=== PATIENT | female | born 1940 | race Caucasian/White ===

== ENCOUNTER 2024-05-09 17:28 | Inpatient (IN) | payer BC, MEDICARE ==
[~2024-05-09] VITALS: Ht 160 cm; Wt 56.4 kg
[~2024-05-09 17:28] MED LIST: VALS1TAB2 PO
[2024-05-09] MEDS: VANCOMYCIN 1 GM in IV D5W 250 ML IV ONE (18:00)
[2024-05-09 18:18] LABS: BASOPHILS # (AUTO) 0.2 K/uL (0.0-0.2); BASOPHILS % (AUTO) 0.8 % (0.0-2.0); EOSINOPHILS % (AUTO) 0.1 % (0.0-6.0); HEMATOCRIT 32 % (33-45); HEMOGLOBIN 10.4 g/dL (11.5-14.8); LYMPHOCYTES # (AUTO) 0.4 K/uL (0.8-4.8); LYMPHOCYTES % (AUTO) 1.2 % (20.0-44.0); MEAN CORPUSCULAR HEMOGLOBIN 31 PG (26.0-33.0); MEAN CORPUSCULAR HGB CONC 33 g/dl (31.0-36.0); MEAN CORPUSCULAR VOLUME 93 fL (82-100); MONOCYTES # (AUTO) 0.4 K/uL (0.1-1.30); MONOCYTES % (AUTO) 1.4 % (2.0-12.0); NEUTROPHILS # (AUTO) 27.7 K/uL (1.8-8.9); NEUTROPHILS % (AUTO) 96.5 % (43.0-81.0); PLATELET COUNT (AUTO) 304 K/uL (150-450); RED BLOOD CELL COUNT(AUTO) 3.41 MIL/uL (4.0-5.2); RED CELL DISTRIBUTION WIDTH 13.5 % (11.5-15.0); WHITE BLOOD COUNT (AUTO) 28.7 K/uL (4.3-11.0)
[2024-05-09] MEDS ORDERED: LORA-258 PO (18:18)
[2024-05-09] MEDS ORDERED: CYAN-51 PO (18:18)
[2024-05-09] MEDS ORDERED: GUAI100S34 PO (18:18)
[2024-05-09] MEDS ORDERED: ACET-907 PO (18:18)
[2024-05-09] MEDS ORDERED: THIA100T88 PO (18:18)
[2024-05-09] MEDS ORDERED: [UNRECOGNIZED DRUG - CODE] PO (18:18)
[2024-05-09] MEDS ORDERED: AZEL137S7 BNOSTRILS (18:18)
[2024-05-09] MEDS ORDERED: ACETAMINOPHEN ES 500 MG TABLET ONE (18:23)
[2024-05-09 18:28] LABS: LACTIC ACID 1.1 mmol/L (0.4-2.0)
[2024-05-09 18:33] LABS: CALCIUM, SERUM 9.2 mg/dL (8.5-10.1); CARBON DIOXIDE 23 mmol/L (21-32); CHLORIDE 94 mmol/L (98-107); CREATININE 1.8 mg/dL (0.6-1.3); GLUCOSE 113 mg/dL (74-106); POTASSIUM 3.7 mmol/L (3.5-5.1); SODIUM SERUM 129 mmol/L (136-145); UREA NITROGEN, BLOOD 50 mg/dL (7-18)
[2024-05-09] MEDS: CEFEPIME 1 GM in IV D5W 50 ML IV ONE (18:35)
[2024-05-09] MEDS: IV NS 0.9% 1,000 ML BAG IV ONE ×2 (18:35)
[2024-05-09] MEDS: ACETAMINOPHEN ES 500 MG TABLET PO ONE (18:36)
[2024-05-09 18:41] LABS: APPEARANCE,URINE Slightly Cloudy (CLEAR); BILIRUBIN,URINE SMALL (NEGATIVE); BLOOD, URINE Moderate Ery/uL (NEGATIVE); COLOR,URINE YELLOW (YELLOW); KETONES,URINE Trace mg/dL (NEGATIVE); LEUKOCYTE ESTERASE ,URINE Negative (NEGATIVE); NITRITE, URINE Negative (NEGATIVE); PH,URINE 5.5 (5.0-8.0); PROTEIN,URINE >=300 mg/dl (NEGATIVE); UGLUCOSE Negative (NEGATIVE)
[2024-05-09 19:19] LABS: ADD URINE CULTURE NO; BACTERIA,URINE Few /HPF (None Seen); SQUAMOUS EPITHELIAL CELL,UR Few /HPF (None Seen); URINE AMORPHOUS URATE Many /HPF (None Seen)
[2024-05-09] MEDS ORDERED: ONDANSETRON HCL/PF 4 MG/2 ML VIAL IVP PRN (20:00)
[2024-05-09] MEDS ORDERED: ALBUTEROL FS 2.5 MG/3 ML VIAL.NEB NEB PRN (20:00)
[2024-05-09] MEDS ORDERED: Z GUARD REMEDY 4 OZ OINT TP PRN (20:00)
[2024-05-09] MEDS: ZOLPIDEM TARTRATE 5 MG TABLET PO PRN (22:29)
[2024-05-09] MEDS: IV NS 0.9% 1,000 ML IV PRN (22:45)
[2024-05-10] VITALS: BP 113/79; TEMP 97.5; O2SAT 98
[2024-05-10 04:00] VITALS: BP 126/51; TEMP 97.6; O2SAT 99
[2024-05-10] MEDS: ACETAMINOPHEN 325 MG TABLET PO PRN (05:01)
[2024-05-10 07:22] LABS: BASOPHILS % (AUTO) 0.2 % (0.0-2.0); EOSINOPHILS # (AUTO) 0.2 K/uL (0.0-0.7); EOSINOPHILS % (AUTO) 0.6 % (0.0-6.0); HEMATOCRIT 28 % (33-45); HEMOGLOBIN 9.4 g/dL (11.5-14.8); LYMPHOCYTES # (AUTO) 0.5 K/uL (0.8-4.8); LYMPHOCYTES % (AUTO) 1.9 % (20.0-44.0); MEAN CORPUSCULAR HEMOGLOBIN 31 PG (26.0-33.0); MEAN CORPUSCULAR HGB CONC 34 g/dl (31.0-36.0); MEAN CORPUSCULAR VOLUME 91 fL (82-100); MONOCYTES # (AUTO) 0.5 K/uL (0.1-1.30); MONOCYTES % (AUTO) 1.8 % (2.0-12.0); NEUTROPHILS # (AUTO) 23.8 K/uL (1.8-8.9); NEUTROPHILS % (AUTO) 95.5 % (43.0-81.0); PLATELET COUNT (AUTO) 251 K/uL (150-450); RED BLOOD CELL COUNT(AUTO) 3.02 MIL/uL (4.0-5.2); RED CELL DISTRIBUTION WIDTH 13.9 % (11.5-15.0)
[2024-05-10] MEDS: PANTOPRAZOLE 40 MG TABLET.DR PO SCH (07:30)
[2024-05-10 08:00] VITALS: BP_SYST 139; BP_SYST 143; BP_DIAS 53; BP_DIAS 76; TEMP 97.5; TEMP 98.1; O2SAT 95; O2SAT 97
[2024-05-10 08:19] LABS: CALCIUM, SERUM 8.6 mg/dL (8.5-10.1); CARBON DIOXIDE 22 mmol/L (21-32); CHLORIDE 102 mmol/L (98-107); CREATININE 1.3 mg/dL (0.6-1.3); GLUCOSE 102 mg/dL (74-106); MAGNESIUM 2.1 mg/dL (1.8-2.4); PHOSPHORUS 3.8 mg/dL (2.5-4.9); POTASSIUM 3.3 mmol/L (3.5-5.1); SODIUM SERUM 135 mmol/L (136-145); UREA NITROGEN, BLOOD 44 mg/dL (7-18)
[2024-05-10] MEDS: CEFEPIME 1 GM in IV D5W 50 ML IV SCH (09:18)
[2024-05-10] MEDS: POTASSIUM CHLORIDE 20 MEQ TAB.PRT.SR PO ONE (11:48)
[2024-05-10 12:00] VITALS: BP 126/56; TEMP 97.5; O2SAT 100
[2024-05-10] MEDS ORDERED: ACETAMINOPHEN W/ CODEINE#3 1 EA TABLET PO PRN (12:00)
[2024-05-10] MEDS: LORAZEPAM 0.5 MG TABLET PO SCH (12:16)
[2024-05-10] MEDS: ENOXAPARIN SODIUM 30 MG/0.3 ML DISP.SYRIN SQ SCH (12:35)
[2024-05-10 15:45] LABS: ALBUMIN 1.7 g/dL (3.4-5.0); BILIRUBIN,DIRECT 0.3 mg/dL (0.0-0.2); BILIRUBIN,TOTAL 0.5 mg/dL (0.2-1.0)
[2024-05-10 16:00] VITALS: BP 131/63; TEMP 98.6; O2SAT 99
[2024-05-10] MEDS: VANCOMYCIN 750 MG in IV D5W 250 ML IV SCH (17:06)
[2024-05-10] MEDS ORDERED: VANCOMYCIN 500 MG in IV D5W 100ml IV SCH (18:00)
[2024-05-10 20:00] VITALS: BP 149/56; TEMP 98.8; O2SAT 99
[2024-05-10] MEDS: ZOLPIDEM TARTRATE 5 MG TABLET PO PRN (20:24)
[2024-05-11] VITALS: BP 144/72; TEMP 99.1; O2SAT 98
[2024-05-11 04:00] VITALS: BP 147/70; TEMP 99; O2SAT 97
[2024-05-11 07:08] LABS: BASOPHILS # (AUTO) 0.1 K/uL (0.0-0.2); BASOPHILS % (AUTO) 0.3 % (0.0-2.0); EOSINOPHILS # (AUTO) 0.5 K/uL (0.0-0.7); EOSINOPHILS % (AUTO) 2.7 % (0.0-6.0); HEMATOCRIT 27 % (33-45); HEMOGLOBIN 9.2 g/dL (11.5-14.8); LYMPHOCYTES # (AUTO) 0.8 K/uL (0.8-4.8); MEAN CORPUSCULAR HEMOGLOBIN 31 PG (26.0-33.0); MEAN CORPUSCULAR HGB CONC 34 g/dl (31.0-36.0); MEAN CORPUSCULAR VOLUME 92 fL (82-100); MONOCYTES # (AUTO) 0.7 K/uL (0.1-1.30); MONOCYTES % (AUTO) 3.4 % (2.0-12.0); NEUTROPHILS % (AUTO) 89.6 % (43.0-81.0); PLATELET COUNT (AUTO) 244 K/uL (150-450); RED BLOOD CELL COUNT(AUTO) 2.94 MIL/uL (4.0-5.2); RED CELL DISTRIBUTION WIDTH 13.6 % (11.5-15.0)
[2024-05-11 07:51] LABS: CALCIUM, SERUM 8.5 mg/dL (8.5-10.1); CARBON DIOXIDE 21 mmol/L (21-32); CHLORIDE 103 mmol/L (98-107); GLUCOSE 94 mg/dL (74-106); POTASSIUM 3.4 mmol/L (3.5-5.1); SODIUM SERUM 134 mmol/L (136-145); UREA NITROGEN, BLOOD 25 mg/dL (7-18)
[2024-05-11 08:00] VITALS: BP 186/84; TEMP 97.6; O2SAT 100
[2024-05-11] MEDS: LOSARTAN POTASSIUM 50 MG TABLET PO SCH (08:18)
[2024-05-11] MEDS: AMLODIPINE BESYLATE 5 MG TABLET PO SCH (08:20)
[2024-05-11] MEDS: THIAMINE HCL 100 MG TABLET PO SCH (08:21)
[2024-05-11] MEDS: POTASSIUM CHLORIDE 20 MEQ TAB.PRT.SR PO ONE (10:01)
[2024-05-11 12:00] VITALS: BP 171/73; TEMP 97.5; O2SAT 99
[2024-05-11 14:52] LABS: HIV-1 p24 ANTIGEN NON REACTIVE (NONREACTIVE); HIV-1/2 ANTIBODY NON REACTIVE (NONREACTIVE)
[2024-05-11 16:00] VITALS: BP 149/67; TEMP 97.8; O2SAT 99
[2024-05-11] MEDS: VANCOMYCIN 1 GM in IV D5W 250ml IV SCH (17:02)
[2024-05-11 20:00] VITALS: BP 141/82; TEMP 97.6; O2SAT 96
[2024-05-12] VITALS: BP 149/56; TEMP 97.6; O2SAT 96
[2024-05-12 06:00] VITALS: BP 150/71; TEMP 98.3; O2SAT 96
[2024-05-12 08:27] VITALS: BP 179/84; TEMP 97.5; O2SAT 96
[2024-05-12] MEDS: AMLODIPINE BESYLATE 5 MG TABLET PO SCH (08:30)
[2024-05-12 12:00] VITALS: BP 139/63; TEMP 98.4; O2SAT 99
[2024-05-12] MEDS ORDERED: LORAZEPAM 0.5 MG TABLET PO PRN (12:00)
[2024-05-12] MEDS: busPIRone 5 MG TABLET PO SCH (13:47)
[2024-05-12] MEDS: CEFTRIAXONE 2 G in IV D5W 100 ML IV SCH (13:47)
[2024-05-12 16:00] VITALS: BP 127/54; TEMP 98.4; O2SAT 100
[2024-05-12 20:30] VITALS: BP 159/71; TEMP 98.4; O2SAT 99
[2024-05-13 00:44] VITALS: BP 151/65; TEMP 98.4; O2SAT 96
[2024-05-13 04:44] VITALS: BP 133/60; TEMP 97.5; O2SAT 98
[2024-05-13 08:00] VITALS: BP 139/54; TEMP 97.7; O2SAT 98
[2024-05-13 10:02] LABS: BASOPHILS # (AUTO) 0.1 K/uL (0.0-0.2); BASOPHILS % (AUTO) 0.5 % (0.0-2.0); EOSINOPHILS # (AUTO) 0.3 K/uL (0.0-0.7); EOSINOPHILS % (AUTO) 1.9 % (0.0-6.0); HEMATOCRIT 29 % (33-45); HEMOGLOBIN 9.7 g/dL (11.5-14.8); LYMPHOCYTES # (AUTO) 0.8 K/uL (0.8-4.8); LYMPHOCYTES % (AUTO) 5.5 % (20.0-44.0); MEAN CORPUSCULAR HEMOGLOBIN 31 PG (26.0-33.0); MEAN CORPUSCULAR HGB CONC 33 g/dl (31.0-36.0); MEAN CORPUSCULAR VOLUME 92 fL (82-100); MONOCYTES # (AUTO) 0.7 K/uL (0.1-1.30); MONOCYTES % (AUTO) 4.5 % (2.0-12.0); NEUTROPHILS # (AUTO) 13.5 K/uL (1.8-8.9); NEUTROPHILS % (AUTO) 87.6 % (43.0-81.0); PLATELET COUNT (AUTO) 302 K/uL (150-450); RED BLOOD CELL COUNT(AUTO) 3.18 MIL/uL (4.0-5.2); RED CELL DISTRIBUTION WIDTH 13.6 % (11.5-15.0); WHITE BLOOD COUNT (AUTO) 15.4 K/uL (4.3-11.0)
[2024-05-13 10:18] LABS: CALCIUM, SERUM 9.3 mg/dL (8.5-10.1); CARBON DIOXIDE 29 mmol/L (21-32); CHLORIDE 103 mmol/L (98-107); CREATININE 0.9 mg/dL (0.6-1.3); GLUCOSE 125 mg/dL (74-106); POTASSIUM 2.9 mmol/L (3.5-5.1); SODIUM SERUM 140 mmol/L (136-145); UREA NITROGEN, BLOOD 17 mg/dL (7-18)
[2024-05-13] MEDS: POTASSIUM CHLORIDE 20 MEQ TAB.PRT.SR PO ONE (10:41)
[2024-05-13] MEDS: LORAZEPAM INJ 2 MG/ML VIAL IM ONE (15:46)
[2024-05-13 16:00] VITALS: BP 122/64; TEMP 99.1; O2SAT 96
[2024-05-14] VITALS: BP 122/64; TEMP 99.1; O2SAT 96
[2024-05-14 04:00] VITALS: BP 156/80; TEMP 98.8; O2SAT 94
[2024-05-14 07:07] LABS: BASOPHILS # (AUTO) 0.1 K/uL (0.0-0.2); EOSINOPHILS # (AUTO) 0.3 K/uL (0.0-0.7); EOSINOPHILS % (AUTO) 2.8 % (0.0-6.0); HEMATOCRIT 30 % (33-45); HEMOGLOBIN 10.3 g/dL (11.5-14.8); LYMPHOCYTES # (AUTO) 1.1 K/uL (0.8-4.8); LYMPHOCYTES % (AUTO) 9.4 % (20.0-44.0); MEAN CORPUSCULAR HEMOGLOBIN 31 PG (26.0-33.0); MEAN CORPUSCULAR HGB CONC 34 g/dl (31.0-36.0); MEAN CORPUSCULAR VOLUME 90 fL (82-100); MONOCYTES # (AUTO) 0.7 K/uL (0.1-1.30); MONOCYTES % (AUTO) 6.1 % (2.0-12.0); NEUTROPHILS # (AUTO) 9.7 K/uL (1.8-8.9); NEUTROPHILS % (AUTO) 80.7 % (43.0-81.0); PLATELET COUNT (AUTO) 332 K/uL (150-450); RED BLOOD CELL COUNT(AUTO) 3.37 MIL/uL (4.0-5.2); RED CELL DISTRIBUTION WIDTH 13.4 % (11.5-15.0); WHITE BLOOD COUNT (AUTO) 12.1 K/uL (4.3-11.0)
[2024-05-14 07:51] LABS: CALCIUM, SERUM 8.8 mg/dL (8.5-10.1); CARBON DIOXIDE 32 mmol/L (21-32); CHLORIDE 99 mmol/L (98-107); CREATININE 0.9 mg/dL (0.6-1.3); GLUCOSE 100 mg/dL (74-106); MAGNESIUM 1.8 mg/dL (1.8-2.4); PHOSPHORUS 2.9 mg/dL (2.5-4.9); SODIUM SERUM 137 mmol/L (136-145); UREA NITROGEN, BLOOD 12 mg/dL (7-18)
[2024-05-14 08:00] VITALS: BP 164/60; TEMP 98; O2SAT 98
[2024-05-14 09:09] VITALS: BP 164/60
[2024-05-14] MEDS: POTASSIUM CHLORIDE 20 MEQ TAB.PRT.SR PO SCH (10:00)
[2024-05-14] MEDS ORDERED: LINE600T13 PO (11:10)
[2024-05-14] MEDS ORDERED: BUSP10TA35 PO (14:59)
[2024-05-14] MEDS ORDERED: LORA-259 PO (14:59)
[2024-05-15 17:11] LABS: *HCV QUANTITATION HCV Not Detected IU/mL (.)
== END 2024-05-14 16:00 | disposition home health service (06) | DRG 871 ==
LOC: ER 17:33 → TELE1 21:10 → MEDSG1 05-13 12:18
PROVIDERS: ADMIT Nurse Practitioner Family; ATTEND Nurse Practitioner Family
DX: A40.8 Other streptococcal sepsis (principal); G93.41 Metabolic encephalopathy; J15.9 Unspecified bacterial pneumonia; J96.01 Acute respiratory failure with hypoxia; E87.1 Hypo-osmolality and hyponatremia; J98.11 Atelectasis; I50.32 Chronic diastolic (congestive) heart failure; F03.94 Unspecified dementia, unspecified severity, with anxiety; D63.8 Anemia in other chronic diseases classified elsewhere; Z95.2 Presence of prosthetic heart valve; E86.0 Dehydration; Z85.3 Personal history of malignant neoplasm of breast; Z90.12 Acquired absence of left breast and nipple; R65.20 Severe sepsis without septic shock; I11.0 Hypertensive heart disease with heart failure; M89.8X9 Other specified disorders of bone, unspecified site; R73.9 Hyperglycemia, unspecified; H91.93 Unspecified hearing loss, bilateral; F41.1 Generalized anxiety disorder; E87.6 Hypokalemia
CPT/HCPCS: 36415; 71045-TC; 71250-TC; 76770-TC; 80048-TC; 80076-TC; 81001; 83605-TC; 83735-TC; 84100-TC; 84443-TC; 84484-TC; 85025-TC; 86803; 87040-TC; 87081-TC; 87086-TC; 87522; 87806; 93307-TC; 94799-TC; 97116-TC; 97530-TC; A4223; G0378; J0692; J0696; J1650; J2060; J3370; J3371; J7030; J7060